=== PATIENT | female | born 1985 | race Caucasian/White ===

== ENCOUNTER 2017-09-22 15:30 | Emergency (ER) | payer MEDICAID ==
[2017-09-22 16:03] LABS: BASOPHILS 0.2 % (0-2); EOSINOPHILS 0.2 % (0-7); HEMATOCRIT 39.3 % (36.0-48.0); IMMATURE GRANULOCYTES 0.3 % (0-5); LYMPHOCYTES 6.6 % (15-50); MCH 30.9 pg (26.0-34.0); MCHC 33.1 g/dL (31.0-37.0); MCV 93.3 fL (80.0-100.0); MEAN PLATELET VOLUME 10.1 fL (7.4-10.4); MONOCYTES 6.1 % (2-11); NEUTROPHILS 86.6 % (40-80); PLATELET COUNT 313 10x3/uL (130-400); RBC 4.21 10x6/uL (4.00-5.40); RDW 13.6 % (11.5-14.5)
[2017-09-22 16:05] LABS: APPEARANCE HAZY (CLEAR); BILIRUBIN NEGATIVE (NEGATIVE); COLOR DK YELLOW (YELLOW); GLUCOSE NEGATIVE (NEGATIVE); KETONE NEGATIVE (NEGATIVE); NITRITE POSITIVE (NEGATIVE); PROTEIN 1+ mg/dL (NEGATIVE); SPECIFIC GRAVITY 1.015 (1.005-1.020); UROBILINOGEN NORMAL (NORMAL)
[2017-09-22 16:07] LABS: WHITE CELLS - URINE >50 /hpf (0-5)
[2017-09-22 16:08] LABS: BACTERIA MODERATE /hpf (NONE SEEN); EPITHELIAL CELLS 0-5 /hpf (0-5)
[2017-09-22 16:36] LABS: ALBUMIN 3.5 g/dL (3.4-5.0); ANION GAP 15.2 mmol/L (8-16); BILIRUBIN - TOTAL 0.61 mg/dL (0.2-1.3); CARBON DIOXIDE 26.3 mmol/L (21.0-32.0); HCG URINE NEGATIVE (NEGATIVE); POTASSIUM - SERUM 3.5 mmol/L (3.5-5.1); PROTEIN - SERUM 8.3 g/dL (6.4-8.2)
== END 2017-09-22 18:53 | disposition home or self-care (01) ==
LOC: D.ER 15:30
PROVIDERS: Family Medicine
DX: N39.0 Urinary tract infection, site not specified (principal)

== ENCOUNTER 2017-11-27 11:27 | Emergency (ER) | payer MEDICAID ==
[2017-11-27 12:10] LABS: BASOPHILS 0.7 % (0-2); EOSINOPHILS 1.4 % (0-7); HEMATOCRIT 38.1 % (36.0-48.0); HEMOGLOBIN 12.6 g/dL (12-16); IMMATURE GRANULOCYTES 0.2 % (0-5); LYMPHOCYTES 20.2 % (15-50); MCH 30.4 pg (26.0-34.0); MCHC 33.1 g/dL (31.0-37.0); MCV 91.8 fL (80.0-100.0); MEAN PLATELET VOLUME 9.8 fL (7.4-10.4); MONOCYTES 6.8 % (2-11); NEUTROPHILS 70.7 % (40-80); PLATELET COUNT 361 10x3/uL (130-400); RBC 4.15 10x6/uL (4.00-5.40); RDW 13.9 % (11.5-14.5); WBC 10.1 10x3/uL (4.8-10.8)
[2017-11-27 12:19] LABS: HCG SERUM NEGATIVE (NEGATIVE)
[2017-11-27 12:40] LABS: APPEARANCE CLEAR (CLEAR); BILIRUBIN NEGATIVE (NEGATIVE); COLOR DK YELLOW (YELLOW); GLUCOSE NEGATIVE (NEGATIVE); KETONE NEGATIVE (NEGATIVE); NITRITE NEGATIVE (NEGATIVE); PROTEIN NEGATIVE (NEGATIVE); SPECIFIC GRAVITY 1.005 (1.005-1.020)
[2017-11-27 12:41] LABS: BACTERIA MODERATE /hpf (NONE SEEN); MUCUS >1+ /lpf (NONE SEEN); RED CELLS - URINE 0-5 /hpf (0-5); WHITE CELLS - URINE 0-5 /hpf (0-5)
== END 2017-11-27 13:14 | disposition home or self-care (01) ==
LOC: D.ER 11:27
PROVIDERS: Family Medicine
DX: N94.6 Dysmenorrhea, unspecified (principal); F17.200 Nicotine dependence, unspecified, uncomplicated

== ENCOUNTER 2017-12-22 13:17 | Emergency (ER) | payer MEDICAID | END 2017-12-22 15:45 | disposition home or self-care (01) | LOC: D.ER 13:17 | DX: S40.212A Abrasion of left shoulder, initial encounter (principal); V43.52XA Car driver injured in collision with other type car in traffic accident, initial encounter; Y93.89 Activity, other specified; Y92.410 Unspecified street and highway as the place of occurrence of the external cause; S40.012A Contusion of left shoulder, initial encounter; F17.200 Nicotine dependence, unspecified, uncomplicated ==

== ENCOUNTER 2018-01-31 09:19 | Emergency (ER) | payer MEDICAID ==
[2018-01-31 10:28] LABS: APPEARANCE CLOUDY (CLEAR); BILIRUBIN NEGATIVE (NEGATIVE); COLOR YELLOW (YELLOW); GLUCOSE NEGATIVE (NEGATIVE); KETONE NEGATIVE (NEGATIVE); NITRITE NEGATIVE (NEGATIVE); PROTEIN 3+ mg/dL (NEGATIVE); UROBILINOGEN NORMAL (NORMAL)
[2018-01-31 10:29] LABS: BACTERIA MODERATE /hpf (NONE SEEN); MUCUS <1+ /lpf (NONE SEEN); WHITE CELLS - URINE >50 /hpf (0-5)
== END 2018-01-31 11:23 | disposition home or self-care (01) ==
LOC: D.ER 09:19
PROVIDERS: Family Medicine
DX: N39.0 Urinary tract infection, site not specified (principal); F17.200 Nicotine dependence, unspecified, uncomplicated

== ENCOUNTER 2018-06-13 07:59 | Inpatient (IN) | payer MEDICAID ==
[~2018-06-13] VITALS: Ht 172.7 cm; Wt 58.5 kg
--- NOTE | ~2018-06-13 | MORECARE ---
CASE MANAGEMENT DISCHARGE SUMMARY PATIENT: FRACISCO CAMPOS UNIT: [id number] ADM DATE: 06/13/18 AGE: 33 : 89 SEX: F ROOM/BED: D.1212 AUTHOR: ANSON HURD PHYSICIAN: REFERRING PHYSICIAN: XIANG RILEY MD DATE OF SERVICE: 06/19/18 Discharge Plan Patient Name: FRACISCO CAMPOS Facility: [facility]:[place] : 1985 Planned Disposition: Home Anticipated Discharge Date: Discharge Date: 06/18/2018 Expected LOS: Initial Reviewer: [email or web address] Initial Review Date: 06/13/2018 Generated: 06/19/18 3:20 pm Comments DCP- Discharge Planning Updated by [id number]: Flavia Morrow on 06/13/18 4:[address] Patient Name: FRACISCO CAMPOS Admission Status: ER Accout number: [id number] Admission Date: 06-13-2018 : 1985 Admission Diagnosis: Attending: XIANG RILEY Current LOS: 1 Anticipated DC Date: Planned Disposition: Home Primary Insurance: UNINSURED DISCOUNT PLAN Discharge Planning Comments: CM MET WITH PATIENT ABOUT DC PLANNING/NEEDS. PATIENT DENIES NEEDS AT THIS TIME. STATES HAS NO PCP AND NO INSURANCE. CM WILL FOLLOW AND ASSIST NEEDED WITH DC PLANNING/NEEDS. Roll Finisher: Flavia Morrow DCPIA - Discharge Planning Initial Assessment Updated by [email or web address]: Flavia Morrow on 06/13/18 4:58 pm * Is the patient Alert and Oriented? Yes * PCP NONE * Pharmacy [facility] * ADLs Independent * Equipment None * List name and contact numbers for known caregivers / representatives who currently or will assist patient after discharge: DIOMEDES DAVIS, FATHER, * Community resources currently utilized None * Additional services required to return to the preadmission environment? No * Can the patient safely return to the preadmission environment? Yes * Has this patient been hospitalized within the prior 30 days at any hospital? No Last DP export: 06/13/18 4:03 Patient Name: FRACISCO CAMPOS Page [id number] at 1420 All edits/amendments must be made on the electronic document DICTATION DATE: 06/19/181419 RN DOCUMENT IMPROVEMENT SPECIALIST: RAMONE 06/19/181419 RPT#: [id number] DC DATE:06/18/18 STATUS: DIS [facility] [address] [place] [id number] END OF REPORT
[2018-06-13] MEDS ORDERED: IBUPROFEN200 MG PO (08:08)
[2018-06-13 08:51] LABS: HCG URINE NEGATIVE (NEGATIVE)
[2018-06-13 08:56] LABS: UDS - AMPHET NEGATIVE QUAL (NEGATIVE); UDS - BARB NEGATIVE QUAL (NEGATIVE); UDS - BENZO NEGATIVE QUAL (NEGATIVE); UDS - COCAINE NEGATIVE QUAL (NEGATIVE); UDS - OPIATE NEGATIVE QUAL (NEGATIVE); UDS - PCP NEGATIVE QUAL (NEGATIVE); UDS - THC NEGATIVE QUAL (NEGATIVE)
[2018-06-13 09:02] LABS: BASOPHILS 0.2 % (0-2); EOSINOPHILS 0.4 % (0-7); HEMATOCRIT 40.1 % (36.0-48.0); HEMOGLOBIN 13.3 g/dL (12-16); IMMATURE GRANULOCYTES 0.3 % (0-5); LYMPHOCYTES 6.3 % (15-50); MCH 31.7 pg (26.0-34.0); MCHC 33.2 g/dL (31.0-37.0); MCV 95.7 fL (80.0-100.0); MEAN PLATELET VOLUME 10.9 fL (7.4-10.4); MONOCYTES 6.6 % (2-11); NEUTROPHILS 86.2 % (40-80); PLATELET COUNT 383 10x3/uL (130-400); RBC 4.19 10x6/uL (4.00-5.40); RDW 14.7 % (11.5-14.5); WBC 18.4 10x3/uL (4.8-10.8)
[2018-06-13 09:04] LABS: APPEARANCE CLOUDY (CLEAR); BACTERIA MANY /hpf (NONE SEEN); BILIRUBIN NEGATIVE (NEGATIVE); COLOR YELLOW (YELLOW); EPITHELIAL CELLS 0-5 /hpf (0-5); GLUCOSE NEGATIVE (NEGATIVE); KETONE NEGATIVE (NEGATIVE); MUCUS >1+ /lpf (NONE SEEN); NITRITE POSITIVE (NEGATIVE); PROTEIN NEGATIVE (NEGATIVE); RED CELLS - URINE RARE /hpf (0-5); SPECIFIC GRAVITY 1.005 (1.005-1.020)
[2018-06-13 09:05] LABS: AMORPHOUS SEDIMENT >1+ /lpf (NONE SEEN)
[2018-06-13 09:37] LABS: ALBUMIN 3.2 g/dL (3.4-5.0); ALKALINE PHOSPHATASE 67 U/L (46-116); ALT (SGPT) 12 U/L (10-68); BILIRUBIN - TOTAL 0.54 mg/dL (0.2-1.3); CALC OSMOLALITY 279 mosm/kg (275-300); CALCIUM 8.2 mg/dL (8.5-10.1); CARBON DIOXIDE 30.2 mmol/L (21.0-32.0); CHLORIDE - SERUM 104 mmol/L (98-107); CREATININE - SERUM 0.8 mg/dL (0.6-1.3); GLUCOSE 92 mg/dL (74-106); POTASSIUM - SERUM 3.5 mmol/L (3.5-5.1); PROTEIN - SERUM 7.2 g/dL (6.4-8.2); SODIUM 141 mmol/L (136-145); UREA NITROGEN 10 mg/dL (7-18); eGFR NON AFRICAN AMERICAN 89 mL/min (90-120)
[2018-06-13 12:04] VITALS: BP 102/56; BMI 19.6
[2018-06-13 12:35] VITALS: BP 105/49
[2018-06-13 20:00] VITALS: BP 115/38
[2018-06-13 23:23] VITALS: BP 102/51
[2018-06-14 04:00] VITALS: BP 112/69
[2018-06-14 05:39] LABS: BASOPHILS 0.3 % (0-2); EOSINOPHILS 2.3 % (0-7); HEMATOCRIT 34.7 % (36.0-48.0); HEMOGLOBIN 11.5 g/dL (12-16); IMMATURE GRANULOCYTES 0.3 % (0-5); LYMPHOCYTES 16.7 % (15-50); MCH 31.3 pg (26.0-34.0); MCHC 33.1 g/dL (31.0-37.0); MCV 94.3 fL (80.0-100.0); MEAN PLATELET VOLUME 10.1 fL (7.4-10.4); MONOCYTES 8.6 % (2-11); NEUTROPHILS 71.8 % (40-80); RBC 3.68 10x6/uL (4.00-5.40); RDW 14.4 % (11.5-14.5)
[2018-06-14 05:40] LABS: PLATELET COUNT 291 10x3/uL (130-400); WBC 11.9 10x3/uL (4.8-10.8)
[2018-06-14 05:56] LABS: ALBUMIN 2.5 g/dL (3.4-5.0); ALKALINE PHOSPHATASE 57 U/L (46-116); ALT (SGPT) 11 U/L (10-68); BILIRUBIN - TOTAL 0.23 mg/dL (0.2-1.3); CALC OSMOLALITY 273 mosm/kg (275-300); CALCIUM 8.1 mg/dL (8.5-10.1); CARBON DIOXIDE 25.4 mmol/L (21.0-32.0); CHLORIDE - SERUM 106 mmol/L (98-107); CREATININE - SERUM 0.6 mg/dL (0.6-1.3); GLUCOSE 84 mg/dL (74-106); POTASSIUM - SERUM 3.6 mmol/L (3.5-5.1); PROTEIN - SERUM 6.2 g/dL (6.4-8.2); SODIUM 139 mmol/L (136-145); eGFR NON AFRICAN AMERICAN > 90 mL/min (90-120)
[2018-06-14 05:57] LABS: UREA NITROGEN 4 mg/dL (7-18)
[2018-06-14 07:52] VITALS: BP 102/50
[2018-06-14 11:32] VITALS: BP 101/52
[2018-06-14 15:28] VITALS: BP 109/55
[2018-06-14 20:06] VITALS: BP 102/53
[2018-06-15 00:37] VITALS: BP 100/56
[2018-06-15 04:00] VITALS: BP 104/59
[2018-06-15 08:05] VITALS: BP 86/50
[2018-06-15 14:45] VITALS: BP 97/58
[2018-06-15 20:33] VITALS: BP 94/49
[2018-06-16 00:04] VITALS: BP 100/58
[2018-06-16 06:59] VITALS: BP 108/53
[2018-06-16 07:04] LABS: CALC OSMOLALITY 277 mosm/kg (275-300); CALCIUM 8.7 mg/dL (8.5-10.1); CARBON DIOXIDE 25.5 mmol/L (21.0-32.0); CHLORIDE - SERUM 103 mmol/L (98-107); CREATININE - SERUM 0.5 mg/dL (0.6-1.3); GLUCOSE 93 mg/dL (74-106); SODIUM 141 mmol/L (136-145); UREA NITROGEN 4 mg/dL (7-18); eGFR NON AFRICAN AMERICAN > 90 mL/min (90-120)
[2018-06-16 07:06] LABS: POTASSIUM - SERUM 4.6 mmol/L (3.5-5.1)
[2018-06-16 08:00] VITALS: BP 101/49
[2018-06-16 09:01] LABS: BASOPHILS 0.5 % (0-2); EOSINOPHILS 1.6 % (0-7); HEMATOCRIT 37.8 % (36.0-48.0); HEMOGLOBIN 12.5 g/dL (12-16); IMMATURE GRANULOCYTES 0.3 % (0-5); LYMPHOCYTES 19.3 % (15-50); MCH 31.2 pg (26.0-34.0); MCHC 33.1 g/dL (31.0-37.0); MCV 94.3 fL (80.0-100.0); MEAN PLATELET VOLUME 9.5 fL (7.4-10.4); MONOCYTES 7.7 % (2-11); NEUTROPHILS 70.6 % (40-80); PLATELET COUNT 321 10x3/uL (130-400); RBC 4.01 10x6/uL (4.00-5.40); RDW 14.2 % (11.5-14.5); WBC 10.3 10x3/uL (4.8-10.8)
[2018-06-16 12:00] VITALS: BP 104/51
[2018-06-16 16:00] VITALS: BP 108/44
[2018-06-16 19:51] VITALS: BP 92/47
[2018-06-17] VITALS: BP 100/51
[2018-06-17 04:00] VITALS: BP 89/48
[2018-06-17 07:36] VITALS: BP 106/57
[2018-06-17 10:53] VITALS: Ht 172.7 cm; Wt 58.5 kg
[2018-06-17 11:27] LABS: BASOPHILS 0.4 % (0-2); EOSINOPHILS 2.1 % (0-7); HEMATOCRIT 39.6 % (36.0-48.0); HEMOGLOBIN 13.3 g/dL (12-16); IMMATURE GRANULOCYTES 0.3 % (0-5); LYMPHOCYTES 13.8 % (15-50); MCH 31.5 pg (26.0-34.0); MCHC 33.6 g/dL (31.0-37.0); MCV 93.8 fL (80.0-100.0); MEAN PLATELET VOLUME 9.6 fL (7.4-10.4); NEUTROPHILS 74.4 % (40-80); PLATELET COUNT 360 10x3/uL (130-400); RBC 4.22 10x6/uL (4.00-5.40); WBC 11.4 10x3/uL (4.8-10.8)
[2018-06-17 11:38] LABS: HCG SERUM NEGATIVE (NEGATIVE)
[2018-06-17 11:48] LABS: ALBUMIN 3.2 g/dL (3.4-5.0); ALKALINE PHOSPHATASE 62 U/L (46-116); ALT (SGPT) 42 U/L (10-68); BILIRUBIN - TOTAL 0.11 mg/dL (0.2-1.3); CALCIUM 9.1 mg/dL (8.5-10.1); CARBON DIOXIDE 28.3 mmol/L (21.0-32.0); CHLORIDE - SERUM 102 mmol/L (98-107); GLUCOSE 93 mg/dL (74-106); POTASSIUM - SERUM 4.4 mmol/L (3.5-5.1); SODIUM 139 mmol/L (136-145); eGFR NON AFRICAN AMERICAN 89 mL/min (90-120)
[2018-06-17 11:49] LABS: CALC OSMOLALITY 276 mosm/kg (275-300); CREATININE - SERUM 0.8 mg/dL (0.6-1.3); UREA NITROGEN 10 mg/dL (7-18)
[2018-06-17 12:00] VITALS: BP 96/58
[2018-06-17 16:00] VITALS: BP 110/49
[2018-06-17 19:57] VITALS: BP 92/49
[2018-06-18] VITALS: BP 140/48
[2018-06-18 04:00] VITALS: BP 128/65
[2018-06-18 06:14] LABS: BASOPHILS 0.4 % (0-2); HEMATOCRIT 36.4 % (36.0-48.0); IMMATURE GRANULOCYTES 0.2 % (0-5); LYMPHOCYTES 20.2 % (15-50); MCH 31.1 pg (26.0-34.0); MCV 94.3 fL (80.0-100.0); MEAN PLATELET VOLUME 9.4 fL (7.4-10.4); MONOCYTES 6.9 % (2-11); NEUTROPHILS 70.3 % (40-80); PLATELET COUNT 345 10x3/uL (130-400); RBC 3.86 10x6/uL (4.00-5.40); RDW 13.8 % (11.5-14.5); WBC 11.7 10x3/uL (4.8-10.8)
[2018-06-18 06:42] LABS: ALBUMIN 2.9 g/dL (3.4-5.0); ALKALINE PHOSPHATASE 53 U/L (46-116); ALT (SGPT) 36 U/L (10-68); BILIRUBIN - TOTAL 0.18 mg/dL (0.2-1.3); CALC OSMOLALITY 275 mosm/kg (275-300); CALCIUM 8.7 mg/dL (8.5-10.1); CARBON DIOXIDE 29.6 mmol/L (21.0-32.0); CHLORIDE - SERUM 103 mmol/L (98-107); CREATININE - SERUM 0.6 mg/dL (0.6-1.3); GLUCOSE 99 mg/dL (74-106); POTASSIUM - SERUM 3.8 mmol/L (3.5-5.1); PROTEIN - SERUM 7.1 g/dL (6.4-8.2); SODIUM 139 mmol/L (136-145); UREA NITROGEN 8 mg/dL (7-18); eGFR NON AFRICAN AMERICAN > 90 mL/min (90-120)
[2018-06-18 08:28] VITALS: BP 93/50
[2018-06-18 15:48] VITALS: BP 99/51
== END 2018-06-18 17:52 | disposition left against medical advice (07) | DRG 501 ==
LOC: D.ER 07:59 → D.EDHOLD 10:10 → D.M3 10:10
PROVIDERS: Emergency Medicine; Family Medicine; Internal Medicine Nephrology; Orthopaedic Surgery
PROC: 0KQ90ZZ Repair Right Lower Arm and Wrist Muscle, Open Approach (ICD-10-PCS; 2018-06-15)
PROC: 3E1038Z Irrigation of Skin and Mucous Membranes using Irrigating Substance, Percutaneous Approach (ICD-10-PCS; principal; 2018-06-15 10:21)
DX: S56.521A Laceration of other extensor muscle, fascia and tendon at forearm level, right arm, initial encounter (principal); L03.113 Cellulitis of right upper limb; N39.0 Urinary tract infection, site not specified; F17.213 Nicotine dependence, cigarettes, with withdrawal; S61.511A Laceration without foreign body of right wrist, initial encounter; W01.110A Fall on same level from slipping, tripping and stumbling with subsequent striking against sharp glass, initial encounter; F41.9 Anxiety disorder, unspecified; F32.9 Major depressive disorder, single episode, unspecified; N64.3 Galactorrhea not associated with childbirth

== ENCOUNTER 2018-11-09 09:47 | Emergency (ER) | payer MEDICAID ==
[~2018-11-09] VITALS: Ht 172.7 cm; Wt 60.0 kg
[~2018-11-09 09:47] MED LIST: IBUPROFEN200 MG PO
[2018-11-09 09:49] VITALS: Ht 172.7 cm; Wt 60.0 kg
[2018-11-09 10:25] LABS: HCG URINE POSITIVE (NEGATIVE)
[2018-11-09 10:31] LABS: APPEARANCE HAZY (CLEAR); COLOR YELLOW (YELLOW)
[2018-11-09 10:32] LABS: BACTERIA MODERATE /hpf (NONE SEEN); BILIRUBIN NEGATIVE (NEGATIVE); EPITHELIAL CELLS OCC /hpf (0-5); GLUCOSE NEGATIVE (NEGATIVE); KETONE NEGATIVE (NEGATIVE); NITRITE NEGATIVE (NEGATIVE); PROTEIN TRACE mg/dL (NEGATIVE); RED CELLS - URINE OCC /hpf (0-5); UROBILINOGEN NORMAL (NORMAL)
[2018-11-09] MEDS ORDERED: KEFLEX500 MG PO (10:41)
[2018-11-09] MEDS ORDERED: MACROBID100 MG PO (10:41)
[2018-11-09 10:52] VITALS: BP 125/74
== END 2018-11-09 10:53 | disposition home or self-care (01) ==
LOC: D.ER 09:47
PROVIDERS: Family Medicine
DX: N39.0 Urinary tract infection, site not specified (principal); Z32.01 Encounter for pregnancy test, result positive

== ENCOUNTER → 2019-02-14 15:30 | Outpatient (CLI) | payer MEDICAID ==
[2018-11-09 09:49] VITALS: BMI 20.1
[~2019-02-14 15:30] MED LIST changes: +KEFLEX500 MG PO; +MACROBID100 MG PO
[2019-02-14 16:10] LABS: BASOPHILS 0.3 % (0-2); EOSINOPHILS 1.3 % (0-7); HEMATOCRIT 31.5 % (36.0-48.0); HEMOGLOBIN 10.9 g/dL (12-16); IMMATURE GRANULOCYTES 0.3 % (0-5); MCH 31.4 pg (26.0-34.0); MCHC 34.6 g/dL (31.0-37.0); MCV 90.8 fL (80.0-100.0); MEAN PLATELET VOLUME 9.9 fL (7.4-10.4); MONOCYTES 5.1 % (2-11); PLATELET COUNT 292 10x3/uL (130-400); RBC 3.47 10x6/uL (4.00-5.40); RDW 13.6 % (11.5-14.5)
== END | disposition home or self-care (01) ==
LOC: D.LDO 15:30
PROVIDERS: ATTEND Obstetrics & Gynecology
DX: O26.899 Other specified pregnancy related conditions, unspecified trimester (principal); Z3A.00 Weeks of gestation of pregnancy not specified

== ENCOUNTER 2019-05-21 23:31 | Outpatient (CLI) | payer MEDICAID ==
[2018-11-09 09:49] VITALS: BMI 20.1
[2019-05-21 23:58] LABS: UDS - AMPHET NEGATIVE QUAL (NEGATIVE); UDS - BARB NEGATIVE QUAL (NEGATIVE); UDS - BENZO NEGATIVE QUAL (NEGATIVE); UDS - COCAINE NEGATIVE QUAL (NEGATIVE); UDS - OPIATE NEGATIVE QUAL (NEGATIVE); UDS - PCP NEGATIVE QUAL (NEGATIVE); UDS - THC NEGATIVE QUAL (NEGATIVE)
== END 2019-05-22 00:12 | disposition home or self-care (01) ==
LOC: D.LDO 23:31 → D.LD 23:32 → D.LDO 05-22 00:12
PROVIDERS: ATTEND Obstetrics & Gynecology
DX: O47.9 False labor, unspecified (principal)

== ENCOUNTER 2019-07-09 21:02 | Inpatient (IN) | payer MEDICAID ==
[~2019-07-09] VITALS: Ht 175.3 cm; Wt 83.6 kg
[2019-07-09 22:15] VITALS: BP 117/4; Ht 175.3 cm; Wt 83.6 kg
[2019-07-09 22:52] LABS: APPEARANCE CLEAR (CLEAR); BILIRUBIN NEGATIVE (NEGATIVE); COLOR YELLOW (YELLOW); GLUCOSE NEGATIVE (NEGATIVE); KETONE NEGATIVE (NEGATIVE); NITRITE NEGATIVE (NEGATIVE); PROTEIN NEGATIVE (NEGATIVE); UROBILINOGEN NORMAL (NORMAL)
[2019-07-09 22:53] LABS: HEMATOCRIT 33.6 % (36.0-48.0); HEMOGLOBIN 11.3 g/dL (12-16); MCH 32.1 pg (26.0-34.0); MCHC 33.6 g/dL (31.0-37.0); MCV 95.5 fL (80.0-100.0); MEAN PLATELET VOLUME 11.3 fL (7.4-10.4); RBC 3.52 10x6/uL (4.00-5.40); RDW 13.4 % (11.5-14.5); WBC 18.5 10x3/uL (4.8-10.8)
--- NOTE | 2019-07-10 03:45 | NUR ---
PATIENT LYING QUIETLY IN BED WITH EYES CLOSED. EASILY AROUSED. ENCOURAGED PATIENT TO FEED . INFANT HANDED TO PATIENT. PATIENT DENIES ANY NEEDS OR CONCERNS. BED IN LOWEST POSITION, SIDE RAILS UP X 2, C/L WITHIN REACH.
--- NOTE | 2019-07-10 12:45 | NUR ---
EDWARDO PAD AND ADDITIONAL MESH BRIEFS PLACED IN BATHROOM. LARGE CUP OF ICE WATER PER REQUEST. DIETARY NOTIFIED FOR REGULAR DIET. INFANT IN CRIB AT BEDSIDE, SIDE RAILS UP X 2 WITH PHONE AND CALL LIGHT IN REACH.
[2019-07-10 13:30] VITALS: BP 105/58
--- NOTE | 2019-07-10 15:00 | NUR ---
PT RESTING ON RIGHT SIDE WITH EYES CLOSED AND RESP EVEN, SIDE RAILS UP X 2 AND CALL LIGHT IS WITHIN HER REACH.
--- NOTE | 2019-07-10 16:30 | NUR ---
CALLED TO ROOM, PT VERIFIES SHE IS TO WASH WITH BETADINE AFTER SHE VOIDS. UP TO BATHROOM PER SELF, PINK PAD AND CHUX CHANGED. AFTER SHE VOIDS SHE QUESTIONS ABOUT PASSING CLOT, THERE IS ABOUT A 2-3 CM CLOT IN TOILET. PT ENCOURAGED TO GET UP TO VOID EVERY 2 HOURS IF POSSIBLE. DENIES EDWARDO PAD BEING SATURATED PRIOR TO VOIDING. WILL CALL IF ANY ASSISTANCE IS NEEDED WHEN SHE VOIDS NEXT. FAMILY AT BEDSIDE WITH INFANT IN ROOM.
--- NOTE | 2019-07-10 17:45 | NUR ---
DIETARY NOTIFIED WITH ORDER FOR SINCE SHE DID NOT LIKE WHAT SHE WAS GIVEN, ALSO PLACED BREAKFAST ORDER FOR AM.
--- NOTE | 2019-07-10 20:30 | NUR ---
PT IS RESTING WELL IN BED. BEDSIDE ASSESSMENT COMPLETED BY RN. FUNDUS IS FIRM. PT HAS MINIMAL AMT OF LOCHIA WHEN UP TO BR. SALINE LOCK IN PLACE. PT IS VERY SLEEPY AT THIS TIME. RESTING QUIETLY.
--- NOTE | 2019-07-10 20:47 | NUR ---
PT C/O PAIN IN EDWARDO AREA. SHE REQUESTED TYLENOL FOR PAIN. 650 MG OF TYLENOL GIVEN PO. PT RESTING. RESPIRATIONS 16 WITH NO DIFFICULTY OR DISTRESS.
--- NOTE | 2019-07-10 21:40 | NUR ---
PAIN RATING FOR PT IS A 2 NOW. SHE IS STILL RESTING QUIETLY WITHOUT ANY C/O.
--- NOTE | 2019-07-10 21:45 | NUR ---
[place] IS RESTING QUIETLY. NO C/0 AT THIS TIME.
[2019-07-10 21:49] VITALS: BP 117/66
--- NOTE | 2019-07-10 22:30 | NUR ---
PT RESTING WITH EYES CLOSED. NO C/O OR REQUEST.
[2019-07-10 23:51] VITALS: BP 104/54
--- NOTE | 2019-07-10 23:51 | NUR ---
VITAL SIGNS DONE. PT IS HOLDING BABY IN HER ARMS. PT RATES HER PAIN A 2 AT THIS TIME. NO C/O OR NEEDS. PT STATES LOCHIA IS STILL MINIMAL. THE LAST TIME SHE WENT TO THE BR SHE HAD TWO VERY SMALL CLOTS ON THE PAD. FUNDUS IS FIRM AT THIS TIME.
--- NOTE | 2019-07-11 02:00 | NUR ---
PT IS RESTING QUIETLY WITH HER EYES CLOSED. RESPIRATIONS DEEP AND UNLABORED. BABY IS WITH PT IN BED AT THIS TIME. BABY IS SLEEPING.
--- NOTE | 2019-07-11 03:34 | NUR ---
PT RINGS CALL LIGHT AND REQUESTS BOTTLE FOR INFANT. SAME PROVIDED. PT DENIES PAIN OR FURTHER NEEDS AT THIS TIME.
--- NOTE | 2019-07-11 04:00 | NUR ---
PT IS RESTING QUIETLY WITH EYES CLOSED.
--- NOTE | 2019-07-11 06:07 | NUR ---
PT IS AWAKE AND ALERT IN BED. HER BABY IS IN THE BED WITH HER. SHE STATES HER BREAST ARE VERY SORE TRYING TO BREAST FEED. SHE HAS FEED SOME WITH THE BOTTLE TONIGHT. NO NEW C/O. SHE RATES HER PAIN AT THIS TIME A 1-2.
--- NOTE | 2019-07-11 06:30 | NUR ---
PT RINGS CALL LIGHT REQUESTING BOTTLE FOR INFANT. NBN RN INFORMED AND BOTTLE DELIVERED TO PT'S ROOM.
[2019-07-11 07:14] LABS: RAPID PLASMA REAGIN Non Reactive (Non Reactive)
[2019-07-11 07:26] LABS: HEMATOCRIT 29.5 % (36.0-48.0); HEMOGLOBIN 9.5 g/dL (12-16); MCH 31.6 pg (26.0-34.0); MCHC 32.2 g/dL (31.0-37.0); PLATELET COUNT 306 10x3/uL (130-400); RBC 3.01 10x6/uL (4.00-5.40); RDW 13.7 % (11.5-14.5); WBC 23.1 10x3/uL (4.8-10.8)
[2019-07-11 11:04] LABS: EOSINOPHILS 1 % (0-7); LYMPHOCYTES 16 % (15-50); MONOCYTES 15 % (2-11); NEUTROPHILS 61 % (40-80); PLATELET ESTIMATE NORMAL
[2019-07-11 11:55] VITALS: BP 105/55
--- NOTE | 2019-07-11 11:55 | NUR ---
PT SITTING UP IN BED AWAKE & ALERT HOLDING . SR UPX2 & CALL LIGHT W/ IN REACH. PT W/ NO C/O AT THIS TIME.
--- NOTE | 2019-07-11 13:50 | NUR ---
DR. TEMPLE IN ROOM W/ PT.
--- NOTE | 2019-07-11 14:30 | NUR ---
D/C INSTRUCTIONS WRITTEN & VERBAL REVIEWED W/ PT. PT VOICED UNDERSTANDING OF ALL INSTRUCTIONS. IV D/C AT THIS TIME.
--- NOTE | 2019-07-11 15:30 | NUR ---
PT READY FOR DISCHARGE. DISCHARGED WITH VIA WHEELCHAIR PER Liz MAURICIO RN TO PRIVATE VEHICLE.
== END 2019-07-11 15:30 | disposition home or self-care (01) | DRG 807 ==
LOC: D.LD 21:02
PROVIDERS: ADMIT Obstetrics & Gynecology; ATTEND Obstetrics & Gynecology
PROC: 10E0XZZ Delivery of Products of Conception, External Approach (ICD-10-PCS; principal; 2019-07-10)
PROC: 0KQM0ZZ Repair Perineum Muscle, Open Approach (ICD-10-PCS; 2019-07-10)
PROC: 10907ZC Drainage of Amniotic Fluid, Therapeutic from Products of Conception, Via Natural or Artificial Opening (ICD-10-PCS; 2019-07-10)
DX: O99.334 Smoking (tobacco) complicating childbirth (principal); Z37.0 Single live birth; F17.200 Nicotine dependence, unspecified, uncomplicated; Z3A.39 39 weeks gestation of pregnancy; O70.1 Second degree perineal laceration during delivery; O77.0 Labor and delivery complicated by meconium in amniotic fluid

== ENCOUNTER 2021-03-03 16:19 | Emergency (ER) | payer MEDICAID ==
[~2021-03-03] VITALS: Ht 175.3 cm; Wt 77.3 kg
[2021-03-03 16:25] VITALS: BP 103/58; Ht 175.3 cm; Wt 77.3 kg
[2021-03-03 18:07] LABS: AMORPHOUS SEDIMENT RARE LPF (<FEW); BACTERIA MANY HPF (<MOD); BILIRUBIN NEGATIVE (NEGATIVE); KETONE NEGATIVE mg/dL (< 1+); NITRITE POSITIVE (NEGATIVE); SQUAMOUS EPITHELIAL 3 HPF (0-4); UROBILINOGEN NORMAL mg/dL (< 2); WHITE CELLS - URINE 27 HPF (0-4)
[2021-03-03] MEDS ORDERED: MACROBID100 MG PO (18:22)
== END 2021-03-03 18:42 | disposition home or self-care (01) ==
LOC: D.ER 16:19
PROVIDERS: Emergency Medicine
DX: O23.42 Unspecified infection of urinary tract in pregnancy, second trimester (principal); E86.0 Dehydration; K21.9 Gastro-esophageal reflux disease without esophagitis; Z3A.16 16 weeks gestation of pregnancy; R42 Dizziness and giddiness